=== PATIENT | female | born 1940 | race Caucasian/White ===

== ENCOUNTER 2018-06-10 07:08 | Day surgery (SDC) | payer MEDICARE ==
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
[~2018-06-10 07:08] MED LIST: Buffered Lidocaine 0.9% SYRIN* 5 ML/SYR SYRINGE INTRADERM ONE; Famotidine IV* 10 MG/ML 2 ML (20 mg) IV ONE; Lactated Ringers 1000 ML Bag* 1,000 ML IV SCH
[2018-06-10] MEDS ORDERED: KETAMINE HCL* 50 MG/ML 10 ML VIAL ONE (09:21)
[2018-06-10] MEDS ORDERED: fentaNYL* 50 MCG/ML 2 ML VIAL (100 MCG VIAL) ONE (09:21)
[2018-06-10] MEDS ORDERED: Propofol* 10 MG/ML 20 ML BTL ONE (09:21)
[2018-06-10] MEDS ORDERED: Ondansetron INJ* 2 MG/ML VIAL ONE (09:21)
[2018-06-10] MEDS ORDERED: Ketorolac INJ* 30 MG/ML 1 ML VIAL ONE (09:21)
[2018-06-10] MEDS ORDERED: Lidocaine 2% PF * 5 ML VIAL ONE (09:21)
[2018-06-10] MEDS ORDERED: Midazolam* 1 MG/ML 5 ML VIAL (5 MG) ONE (09:21)
[2018-06-10] MEDS ORDERED: Dexamethasone IV* 4 MG/ML 1 ML (4 MG) ONE (09:21)
[2018-06-10] MEDS ORDERED: Naloxone* 0.4 MG/ML 1 ML VIAL IV PRN (10:59)
[2018-06-10] MEDS ORDERED: Ondansetron INJ* 2 MG/ML VIAL IV PRN (10:59)
[2018-06-10] MEDS ORDERED: fentaNYL* 50 MCG/ML 2 ML VIAL (100 MCG VIAL) IV PRN (10:59)
[2018-06-10] MEDS ORDERED: HYDROcodone/ACETAMIN 5-325 MG* 1 TAB PO PRN ×2 (13:17)
--- NOTE | 2018-06-10 13:20 | BRIEFOPN ---
Brief Operative Note - Surgery Procedures: Procedures CATARAC PHACOEMULS/ASPIR (07/04/12) INSERT LENS AT CATAR EXT (07/04/12) OCCUPATIONAL THERAPY (06/07/14) OTHER SPEECH THERAPY (06/07/14) PHYSICAL THERAPY NEC (06/07/14) PUNCTURE OF LUNG (06/07/14) 06/10/18 Op Note Pre-op dx: left breast DCIS Post-op dx: same Procedure: needle localization excision of left breast DCIS Surgeon: Omid Asst: none Anesth: local-MAC EBL: 5 cc complications: none SCDs on during surgery Abx: given pre-op Pt. tolerated procedure well and was transferred to in a stable condition. CLFoster
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
[2018-06-10 13:23] VITALS: BP 130/70
[2018-06-10 14:02] LABS: Rapid HIV 1 Nonreactive (Nonreactive)
--- NOTE | 2018-06-10 21:37 | OP ---
CC: [facility]; Dr. Remi Demarco.* DATE OF OPERATION: 06/10/18 - [facility] DATE OF : 38 SURGEON: Kelli Anne MD. BARBER STYLIST: There was no per diem physical therapist assistant for this case. PRE-OP DIAGNOSIS: Left breast ductal carcinoma in situ. POST-OP DIAGNOSIS: Left breast ductal carcinoma in situ. OPERATIVE PROCEDURE: Needle localization and excision of left breast ductal carcinoma in situ. INDICATIONS: Ms. Newsome is a 77-year-old woman with a history of left breast cancer in the past, treated with lumpectomy, radiation, and hormonal therapy, who was found on recent mammography to have a change prompting a plan for biopsy , which showed ductal carcinoma in situ. This in turn prompted a plan for needle localization and excision of the ductal carcinoma in situ. DESCRIPTION OF PROCEDURE: On the morning of surgery, she underwent needle localization without difficulty. She was then brought to the operating room, placed on the OR table in a supine position, and given IV sedation. The left breast was prepped and draped in the usual sterile fashion taking care not to dislodge the localizing wire. Since the wire was noted to emerge from the breast extremely medially, the decision was made to approach the abnormality from anteriorly. After infiltrating with local anesthetic, a curvilinear incision was made in the medial breast and subcutaneous tissue was divided with electrocautery, slightly medial to the skin incision site until the wire was encountered. The wire was then withdrawn through the skin into the wound and then the breast tissue around the wire was grasped with an Allis clamp and dissection was continued with electrocautery to excise the mass of tissue from around the tip of the wire. Once it was out of the breast, it was marked in usual fashion and handed off as a specimen. The report eventually came back from Radiology that the specimen had contained the abnormality. Meanwhile, hemostasis was assured with electrocautery and once this was adequate, clips were placed in the cavity to miladys its confines. The wound was irrigated with saline and then the irrigation fluid was evacuated. The cavity was infiltrated with additional local anesthetic and closure was accomplished with 3-0 Vicryl in the subcutaneous layer and the skin was closed with 4-0 Prolene in a subcuticular fashion. Steri-Strips and a dry sterile dressing were applied. All sponge and instrument counts were correct. The patient tolerated the procedure well and was transferred to Recovery in a stable condition. [id number]/[facility] #: [id number] GRISELDA
[2018-06-12 10:03] LABS: Hepatitis B Surface Antigen Nonreactive (Nonreactive)
[2018-06-12 10:24] LABS: Hepatitis B Surface AB Not Immune (Immune); Hepatitis C Antibody Nonreactive (Nonreactive)
== END 2018-06-10 13:43 | disposition home or self-care (01) ==
LOC: OR 07:08
PROVIDERS: ATTEND Surgery
DX: D05.12 Intraductal carcinoma in situ of left breast (principal); Z85.3 Personal history of malignant neoplasm of breast; E03.9 Hypothyroidism, unspecified; K21.9 Gastro-esophageal reflux disease without esophagitis; K50.90 Crohn's disease, unspecified, without complications; Z87.891 Personal history of nicotine dependence; Z88.0 Allergy status to penicillin
CPT/HCPCS: 36415; 86703; 86706; 86803; 87340; 88307; J1100; J1885; J2250; J2405; J2704; J3010